=== PATIENT | female | born 1955 | race Caucasian/White ===

== ENCOUNTER 2016-06-14 00:39 | Emergency (ER) | payer BC ==
[~2016-06-14] VITALS: Ht 144.8 cm; Wt 58.3 kg
[2016-06-14 00:42] VITALS: TEMP 36.8; Ht 144.8 cm; Wt 58.3 kg
[2016-06-14] MEDS ORDERED: LIDOCAINE/EPINEPH/TETRACAINE 1 EA SYR EXT STA (00:53)
[2016-06-14] MEDS ORDERED: DIPHTHERIA/TETANUS/PERTUSSIS 0.5 ML SYR/VIAL IM. ONE (01:00)
[2016-06-14] MEDS ORDERED: DIPHTHERIA/TETANUS TOX ADSORBED ULTRAFINED 0.5 ML SYR/VIAL IM. ONE (01:15)
[2016-06-14 01:36] VITALS: BP 173/113; PULSE 83; O2SAT 97
--- NOTE | 2016-06-14 01:37 | EMERGENCY ROOM VISIT NOTE ---
History First contact with patient: 00:49 Chief Complaint: HEAD INJURY (MINOR) Stated Complaint: HEAD LAC--FALL History of Present Illness The patient is a 61 year old female who presents to the Emergency Room with complaints of fall after slipping on the ice and striking her head on the ground just prior to arrival and sustaining a scalp laceration. Patient denies headache, loss of conscious, neck pain, chest pain, back pain, abdominal pain, numbness, tingling, dental pain, facial pain nausea, weakness, numbness, tingling, or any other medical complaints. Tetanus is not current. Patient was able to get up. No other complaint per patient. Review of Systems See HPI for pertinent positives & negatives. A total of 10 systems reviewed and were otherwise negative. Past Medical/Surgical History none Social History Smoking Status: Never Smoker Smokeless Tobacco Use: No Alcohol Use: none Drug Use: none Marital Status: Housing Status: lives with family Physical Exam Vital Signs Date Time Temp Pulse Resp B/P Pulse Ox O2 Delivery O2 Flow Rate FiO2 06/14/16 00:47 18 06/14/16 00:42 36.8 78 18 169/91 98 Room Air Physical Exam VITALS: Vitals are noted on the nurse's note and reviewed by myself. Vital signs stable. GENERAL: Pleasant female, in no acute distress, nondiaphoretic, well-developed well-nourished. SKIN: 4 cm right parietal laceration that is gaping and appears clean with no deep structures visualized The rest of the skin was without rashes, erythema, edema, or bruising. There is no tenting of the skin. Capillary reflex less than 2 seconds. HEAD: Normocephalic EARS: External auditory canals clear, tympanic membranes pearly quintana without erythema or effusion bilaterally. EYES: Pupils equal round and reactive to light and accommodation. Conjunctivae without injection, sclerae without icterus. Extraocular movements intact. NOSE: Patent, turbinates without inflammation or discharge. No sinus tenderness. MOUTH: Mucous membranes moist. Pharynx without erythema or exudate. Uvula midline. Airway patent. Tongue does not deviate. Face: Nontender to palpation. Patient can fully open and close jaw without pain NECK: Supple without nuchal rigidity. No lymphadenopathy. No thyromegaly. Cervical spine is nontender. No JVD. HEART: Regular rate and rhythm without murmurs gallops or rubs. LUNGS: Clear to auscultation bilaterally without wheezes, rales or rhonchi. No dullness to percussion. No retractions or accessory muscle use. ABDOMEN: Positive bowel sounds x 4. Normal tympanic percussion. Soft, nontender, without masses or organomegaly. Alberts sign negative. No guarding or rebound tenderness. MUSCULOSKELETAL: No muscle atrophy, erythema, or edema noted. NEURO: Patient was alert and oriented to person place and time. Normal sensation to light and sharp touch. No focal neurological deficits. Cranial nerves II through XII grossly intact. No pronator drift. Cerebellar exam intact. Medical Decision & Procedures Medications Administered Medications (Trade) Dose Ordered Sig/Karen Route Start Time Stop Time Status Last Admin Dose Admin Tetracaine/ Epinephrine/ Lidocaine (L.e.t. Gel 4%/ 1:100/0.5%) 1 ea NOW STAT EXT 06/14/16 00:53 06/14/16 00:54 DC 06/14/16 00:58 1 EA Tetanus/ Diphtheria Toxoids Adsorbed (Tetanus Diphthe Tox Adsorb Inj) 0.5 ml ONCE ONCE IM. 06/14/16 01:15 06/14/16 01:16 DC 06/14/16 01:17 0.5 ML Procedure Location: Scalp Total length: 4cm Complexity: Simple Verbal consent was obtained after the risks and benefits were explained, including but not limited to bleeding, scarring, infection, pain, and bone/ nerve damage. At this time, the risks of the procedure are less than the risks of NOT performing the procedure. A time out was taken and the correct patient and site identified. The scalp was prepped with betadine. The target area was anesthetized with LET. Copious irrigation was performed using saline. The skin was re-prepped with betadine, the hair cleared from the wound, and a sterile field set. The wound was explored for foreign bodies and none found. Debridement was not performed. The wound edges were approximated using 10 surgical omar in the standard fashion. Hemostasis and excellent approximation was achieved. Antibacterial ointment and a sterile dressing applied. Detailed wound care instructions and signs and symptoms of infection reviewed with the pt. No complications and the patient tolerated the procedure well. ED Course Prior records/ancillary studies reviewed. Triage Nursing notes reviewed. Additional history obtained from family. The patient's history was concerning for traumatic head injury Differential diagnosis: Etiologies such as concussion, contusion, fracture, subdural hematoma, epidural hematoma, intraparenchymal hemorrhage, as well as other traumatic pathologies were entertained. Physical examination findings: As above. ER treatment provided: Laceration repaired as above On reassessment the patient felt better. Diagnostics interpreted by me: Deferred It appears the patient has a concussion with scalp laceration was repaired as above. I discussed the risks and the benefits of CT scanning. Clinically the patient is doing well and does not appear to have a significant underlying injury. The pt felt comfortable with conservative observation with the understanding if the clinical picture change that imaging may be necessary at a later time. I gave my usual and customary discussion regarding this issue. Patient was neurovascularly and neurologically intact. She is well-appearing. She is given a tetanus. She refused pertussis. She was advised no sports or strenuous activity or alcohol for the week and do not resume these activities until symptom-free and cleared by the family care doctor. She is advised to return to the ER immediately for headache, fevers, confusion, worsening signs or symptoms or as needed. By the evaluation outlined above emergent etiologies such as fracture, subdural hematoma, epidural hematoma, intraparenchymal hemorrhage, as well as others were deemed relatively unlikely. The pt informed about the findings as listed above. All questions were answered and pleased with the treatment. Return instructions were outlined and the patient was discharged in stable condition. Referral: The patient was referred back to their primary care physician for follow-up in 2 to 3 days for a recheck of the current condition. Medical Decision as above Impression Primary Impression: Head injury Additional Impressions: Scalp laceration Fall Departure Information Dispostion Home / Self-Care Condition GOOD Referrals No Doctor, Assigned (PCP) Patient Instructions My [facility] Additional Instructions Read head injury handout and return for any symptoms. Keep wound clean and dry. No water on the area for 12-24 hrs then no soaking until omar removed. Do not allow any crusting or dried blood to accumulate on omar. If this occurs, use a 1:1 solution of hydrogen peroxide/water on a Q-tip to clean the wound. Use an antibiotic ointment for 3-4 days, then let wound dry. Staple removal in 8 days. Return sooner for any signs of infection (increasing redness , swelling, drainage). Ice and elevate for swelling and pain. Tylenol 1000 mg every 6 hrs for pain. Keep covered when in sun until omar removed then SPF 50 or higher for one year. Vitamin E oil if desired two weeks after staple removal for reduction of scar. Return to ER sooner for headache, fevers, confusion, worsening signs or symptoms or as needed. Problem Qualifiers Primary Impression: Head injury Encounter type: initial encounter Qualified Codes: S09.90XA - Unspecified injury of head, initial encounter Additional Impressions: Scalp laceration Encounter type: initial encounter Qualified Codes: S01.01XA - Laceration without foreign body of scalp, initial encounter
== END 2016-06-14 01:40 | disposition home or self-care (01) ==
LOC: C.EDB 00:41 → C.EDC 01:40
DX: S01.01XA Laceration without foreign body of scalp, initial encounter (principal); S09.90XA Unspecified injury of head, initial encounter; W01.0XXA Fall on same level from slipping, tripping and stumbling without subsequent striking against object, initial encounter; Z23 Encounter for immunization